=== PATIENT | female | born 1960 ===

== ENCOUNTER 2025-04-26 14:56 | Outpatient (REF) | payer OTHER, SELFPAY ==
[2025-04-26 15:56] LABS: Calculated LDL 188 mg/dL (<100); Cholesterol 276 mg/dL (<200); HDL Cholesterol 60 mg/dL (>or=50); Triglyceride 141 mg/dL (<150)
== END 2025-04-26 14:57 | disposition home or self-care (01) ==
LOC: NCHCN 14:56
PROVIDERS: Visit Provider Internal Medicine
DX: E78.5 Hyperlipidemia, unspecified (principal)
CPT/HCPCS: 80061

== ENCOUNTER 2025-07-28 10:11 | Outpatient (REF) | payer OTHER, SELFPAY ==
[2025-07-28 15:09] LABS: Abs Immature Grans 0.01 10^3/uL (0.0-0.06); HCT 43.2 % (36.0-46.0); HGB 14.5 g/dL (11.2-15.7); Immature Grans % 0.2 %; MCH 30.4 pg (27.0-33.0); MCHC 33.6 % (32.0-36.0); MCV 91 fL (80-95); MPV 11.1 fL (8.0-11.0); Platelet Count 248 10^3/uL (130-400); RBC 4.77 10^6/uL (3.93-5.22); RDW 11.3 % (11.7-14.6); RDW-SD 37.8 fL; WBC 6.04 10^3/uL (4.4-10.8)
[2025-07-28 15:22] LABS: ALT 16 U/L (10-49); AST 26 U/L (<34); Albumin 4.4 g/dL (3.4-5.0); Alkaline Phosphatase 72 U/L (46-116); Anion Gap 5.9 mmol/L (3-11); BUN 13 mg/dL (9-23); Bilirubin, Total 0.80 mg/dL (0.2-1.2); CO2 29.1 mmol/L (20.0-31.0); Calcium 9.7 mg/dL (8.3-10.6); Chloride 105 mmol/L (98-107); Glucose 80 mg/dL (74-106); Potassium 4.3 mmol/L (3.5-5.1); Sodium 140 mmol/L (136-145); Total Protein 7.4 g/dL (5.7-8.2)
== END 2025-07-28 10:12 | disposition home or self-care (01) ==
LOC: NCHCN 10:11
PROVIDERS: PCP Internal Medicine; Visit Provider Internal Medicine
DX: R10.9 Unspecified abdominal pain (principal)
CPT/HCPCS: 80053; 85025